=== PATIENT | male | born 1970 | race Caucasian/White ===

== ENCOUNTER → 2020-06-23 | Outpatient (CLI) | payer OTHER ==
--- NOTE | 2020-06-23 16:50 | REP ---
INDICATION: RIGHT SHOULDER PAIN. COMPARISON: None. TECHNIQUE: Five views right shoulder. FINDINGS: There is no acute fracture or dislocation. There is [id number] narrowing of the acromioclavicular joint with mild spurring. There is mild narrowing and spurring at the glenohumeral joint. IMPRESSION: Degenerative changes as above. <Electronically signed by Frank Alegria > 06/23/20 [id number]
== END ==
LOC: M SOG 08:32
PROVIDERS: ATTEND Orthopaedic Surgery Sports Medicine
DX: M75.41 Impingement syndrome of right shoulder (principal); M19.011 Primary osteoarthritis, right shoulder

== ENCOUNTER → 2020-07-12 | Outpatient (CLI) | payer OTHER ==
--- NOTE | 2020-07-13 08:49 | REP ---
INDICATION: RT SHOULDER PAIN IMPINGMENT SYNDROM ? TEAR. COMPARISON: Comparison radiographs are from June 23, 2020. Comparison MRI study May 19, 2017. This prior MRI study was performed at [facility].. TECHNIQUE: Axial, oblique coronal, and oblique sagittal imaging planes utilized. T1 and T2 weighted scans are included with without fat saturation. FINDINGS: There is osteoarthritic hypertrophy of the distal clavicle at the AC joint with subcortical cyst formation, a small amount of joint fluid, and minimal periarticular edema consistent with osteoarthritis. This is essentially unchanged from the 2018 prior MRI study. There is progressive osteoarthritic change in the glenohumeral articulation with multifocal fairly advanced chondromalacia and inferior humeral spurring. Subcortical cyst formation is seen in the humeral head. There is subcortical cyst formation in the inferior aspect of the bony glenoid again noted. The chondromalacia and the spurring are more pronounced. There is increased signal intensity within an underlying the superior labrum. There is an a nondisplaced anterior labral cartilage tear. There is fraying and irregularity of the posterior cartilaginous labrum and small paralabral cysts are seen posteriorly. Biceps tendon is unremarkable. The infraspinatus and subscapularis tendons are intact. There is tendinitis tendinosis change in the distal supraspinatus tendon similar to the prior study with articular surface T2 hyperintensity consistent with partial thickness supraspinatus cuff lesion. This is unchanged. IMPRESSION: Moderate osteoarthritis of the glenohumeral articulation, radiographically progressed since the 19 May 2017 study. 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 AC joint osteoarthritis. Tendinitis tendinosis change in the supraspinatus. No full-thickness cuff tear seen. <Electronically signed by Isidro Darnell > 07/13/20 [id number]
== END ==
LOC: M RAD 17:31
PROVIDERS: ATTEND Orthopaedic Surgery Sports Medicine
DX: M75.41 Impingement syndrome of right shoulder (principal); R93.7 Abnormal findings on diagnostic imaging of other parts of musculoskeletal system